=== PATIENT | male | born 1995 | race Caucasian/White ===

== ENCOUNTER 2020-07-12 17:38 | Emergency (ER) | payer BC ==
[2020-07-12] MEDS ORDERED: Morphine 4 MG/ML VIAL ONE (18:00)
[2020-07-12] MEDS ORDERED: Ketorolac Tromethamine 30 MG/ML VIAL ONE (18:01)
[2020-07-12 18:33] LABS: Bacteria/HPF None Seen HPF (None Seen); Bilirubin Negative (Negative); Blood, Urine 1+ (Negative); Clarity Turbid (Clear); Glucose, Urine (Dipstick) Normal (Negative); Ketone, Urine Negative (Negative); Leukocyte 500 Leu/uL (Negative); Nitrite Negative (Negative); Protein, Urine (Dipstick) 50 mg/dL (Neg-Trace); Specific Gravity, Urine 1.038 (1.002-1.036); Squamous Epithelial 0-3 HPF (0-3); Urobilinogen 3 mg/dL (Less than 2); WBC/HPF Greater than 50 HPF (0-3)
[2020-07-12] MEDS ORDERED: Lidocaine 1% PF 5 ML VIAL ONE (19:15)
[2020-07-12] MEDS ORDERED: cefTRIAXone\\ROCEPHIN 500 MG VIAL ONE (19:15)
[2020-07-16 21:03] LABS: Chlam.trachomatis by PCR,Urine Not Detected (NotDetected)
== END 2020-07-12 23:13 | disposition home or self-care (01) ==
LOC: ERS 17:38
DX: N45.1 Epididymitis (principal); F17.210 Nicotine dependence, cigarettes, uncomplicated
CPT/HCPCS: 76870; 81003; 81015; 87086; 87491; 87591; 93976; 96372; J0696; J1885; J2270

== ENCOUNTER 2022-02-16 18:33 | Emergency (ER) | payer BC, SELFPAY ==
[2022-02-16] MEDS ORDERED: Ibuprofen 800 MG TAB ONE (21:00)
[2022-02-16] MEDS ORDERED: Acetaminophen 500 MG TAB ONE (21:00)
== END 2022-02-16 21:22 | disposition home or self-care (01) ==
LOC: ERS 18:33
DX: M25.532 Pain in left wrist (principal); F17.210 Nicotine dependence, cigarettes, uncomplicated